=== PATIENT | male | born 1960 | race African-American/Black ===

== ENCOUNTER 2021-04-16 16:45 | Inpatient (IN) | payer OTHER ==
[2021-04-16] MEDS ORDERED: MAGNESIUM CITRATE 300 ML BOTTLE PO PRN (18:58)
[2021-04-16] MEDS ORDERED: ACETAMINOPHEN 325 MG TABLET (FP) PO PRN ×2 (18:58)
[2021-04-16] MEDS ORDERED: MAG HYDROX/AL HYDROX/SIMETH 30 ML UNIT-DOSE CUP PO PRN (18:58)
[2021-04-16] MEDS ORDERED: BISMUTH SUBSALICYLATE 524 MG/30 ML PO PRN (18:58)
[2021-04-16] MEDS ORDERED: IBUPROFEN 400 MG TABLET (FP) PO PRN (18:58)
[2021-04-16] MEDS ORDERED: MAGNESIUM HYDROX 2400MG/30ML ORAL SUSPENSION 30 ML CUP PO PRN (18:58)
[2021-04-16 19:43] VITALS: BMI 19.6
[2021-04-16] MEDS: hydrOXYzine PAMOATE 25 MG CAPSULE (FP) PO SCH (22:36)
[2021-04-16] MEDS: MELATONIN 5 MG TABLETS PO SCH (22:36)
[2021-04-16] MEDS: PRENATAL VITAMINS W/ FOLIC ACID TABLET (FP) PO SCH (22:36)
[2021-04-16] MEDS: THIAMINE HCL 100 MG TABLET (FP) PO SCH (22:36)
[2021-04-17] MEDS: NICOTINE 7 MG/24 HOURS TOPICAL PATCH TD SCH ×2 (01:16→11:26)
[2021-04-17] MEDS: hydrOXYzine PAMOATE 25 MG CAPSULE (FP) PO SCH ×5 (07:07→22:33)
[2021-04-17] MEDS ORDERED: methaDONE HCL 10 MG TABLET (FOR DETOX USE ONLY) PO ONE (10:15)
[2021-04-17] MEDS ORDERED: cloNIDine HCL 0.1 MG TABLET PO PRN (10:15)
[2021-04-17] MEDS ORDERED: diazePAM 5 MG TABLET PO PRN (10:15)
[2021-04-17 10:37] LABS: CALCIUM 8.9 mg/dL (8.5-10.1)
[2021-04-17 10:38] LABS: ALBUMIN 3.1 g/dl (3.4-5.0)
[2021-04-17 10:40] LABS: HEMATOCRIT 35.5 % (35.4-49); HEMOGLOBIN 12.1 GM/dL (11.7-16.9); MCH 30.4 pg (25.7-33.7); MEAN CELL VOLUME 89.6 fl (80-96); MEAN PLT VOLUME 7.6 fl (7.5-11.1); PLATELET COUNT 151 10^3/uL (134-434); RBC 3.96 M/mm3 (4.00-5.60); RDW 14.7 % (11.9-15.9)
[2021-04-17 10:41] LABS: CREATININE 2.3 mg/dL (0.55-1.3)
[2021-04-17 10:43] LABS: TOT PROT 7.6 g/dl (6.4-8.2)
[2021-04-17 10:47] LABS: BILIRUBIN,TOTAL 0.3 mg/dL (0.2-1)
[2021-04-17 10:55] LABS: WHITE BLOOD COUNT 1.6 K/mm3 (4.0-10.0)
[2021-04-17] MEDS: PRENATAL VITAMINS W/ FOLIC ACID TABLET (FP) PO SCH (11:28)
[2021-04-17] MEDS: diazePAM 5 MG TABLET PO SCH ×3 (11:29→22:33)
[2021-04-17] MEDS: METHOCARBAMOL 500 MG TABLET PO PRN ×2 (11:30→18:09)
[2021-04-17] MEDS: MELATONIN 5 MG TABLETS PO SCH (22:32)
[2021-04-17] MEDS: THIAMINE HCL 100 MG TABLET (FP) PO SCH (22:33)
[2021-04-17] MEDS: BICTEGRAV/EMTRICIT/TENOFOV (BIKTARVY) 50-200-25 MG TABLET PO SCH (22:35)
[2021-04-18] MEDS: hydrOXYzine PAMOATE 25 MG CAPSULE (FP) PO SCH ×5 (05:56→22:43)
[2021-04-18] MEDS: diazePAM 5 MG TABLET PO SCH ×2 (05:56→10:32)
[2021-04-18] MEDS: BICTEGRAV/EMTRICIT/TENOFOV (BIKTARVY) 50-200-25 MG TABLET PO SCH (07:07)
[2021-04-18] MEDS: NICOTINE 10 MG CARTRIDGE (INHALER) IH PRN (09:11)
[2021-04-18] MEDS ORDERED: methaDONE HCL 10 MG TABLET (FOR DETOX USE ONLY) ONE (09:36)
[2021-04-18] MEDS: amLODIPine BESYLATE 10 MG TABLET (FP) PO SCH (10:30)
[2021-04-18] MEDS: METHOCARBAMOL 500 MG TABLET PO PRN (10:30)
[2021-04-18] MEDS: PRENATAL VITAMINS W/ FOLIC ACID TABLET (FP) PO SCH (10:30)
[2021-04-18] MEDS: NICOTINE 7 MG/24 HOURS TOPICAL PATCH TD SCH (10:30)
[2021-04-18] MEDS: ONDANSETRON *ODT* 4 MG TABLET SL PRN (10:31)
[2021-04-18 18:23] LABS: BLOOD UREA NITROGEN 32.8 mg/dL (7-18)
[2021-04-18 18:26] LABS: CREATININE 2.5 mg/dL (0.55-1.3)
[2021-04-18] MEDS: THIAMINE HCL 100 MG TABLET (FP) PO SCH (22:43)
[2021-04-18] MEDS: MELATONIN 5 MG TABLETS PO SCH (22:47)
[2021-04-18] MEDS: AMMONIUM LACTATE 12% LOTION 225 GM BOTTLE TP SCH (22:48)
[2021-04-19] MEDS ORDERED: LACTULOSE 20 GM/30 ML UDC (FOR ORAL USE ONLY) PO PRN ×2 (00:28→06:00)
[2021-04-19] MEDS ORDERED: diazePAM 5 MG TABLET PO SCH (06:00)
[2021-04-19] MEDS: hydrOXYzine PAMOATE 25 MG CAPSULE (FP) PO SCH ×2 (06:09→10:44)
[2021-04-19] MEDS: METHOCARBAMOL 500 MG TABLET PO PRN (10:40)
[2021-04-19] MEDS: amLODIPine BESYLATE 10 MG TABLET (FP) PO SCH (10:40)
[2021-04-19] MEDS: PRENATAL VITAMINS W/ FOLIC ACID TABLET (FP) PO SCH (10:40)
[2021-04-19] MEDS: methaDONE HCL 10 MG TABLET (FOR DETOX USE ONLY) PO ONE ×2 (10:40→10:54)
[2021-04-19] MEDS: NICOTINE 7 MG/24 HOURS TOPICAL PATCH TD SCH (10:44)
[2021-04-19] MEDS: BICTEGRAV/EMTRICIT/TENOFOV (BIKTARVY) 50-200-25 MG TABLET PO SCH (10:46)
[2021-04-19] MEDS: AMMONIUM LACTATE 12% LOTION 225 GM BOTTLE TP SCH ×2 (11:24→22:23)
[2021-04-19] MEDS: LORazepam 0.5 MG TABLET PO SCH ×3 (11:28→23:48)
[2021-04-19] MEDS: LACTULOSE 20 GM/30 ML UDC (FOR ORAL USE ONLY) PO SCH ×2 (14:28→22:20)
[2021-04-19] MEDS: THIAMINE HCL 100 MG TABLET (FP) PO SCH (22:19)
[2021-04-19] MEDS: MELATONIN 5 MG TABLETS PO SCH (22:24)
[2021-04-20] MEDS: LORazepam 0.5 MG TABLET PO SCH ×2 (05:35→12:38)
[2021-04-20] MEDS: LACTULOSE 20 GM/30 ML UDC (FOR ORAL USE ONLY) PO SCH (05:35)
[2021-04-20] MEDS: MENTHOL/PHENOL 1 EACH UD MM PRN (05:38)
[2021-04-20] MEDS ORDERED: diazePAM 5 MG TABLET PO SCH (06:00)
[2021-04-20] MEDS: PRENATAL VITAMINS W/ FOLIC ACID TABLET (FP) PO SCH (10:16)
[2021-04-20] MEDS: NICOTINE 7 MG/24 HOURS TOPICAL PATCH TD SCH (10:16)
[2021-04-20] MEDS: amLODIPine BESYLATE 10 MG TABLET (FP) PO SCH (10:16)
[2021-04-20] MEDS: AMMONIUM LACTATE 12% LOTION 225 GM BOTTLE TP SCH (10:16)
[2021-04-20] MEDS: NICOTINE 10 MG CARTRIDGE (INHALER) IH PRN (10:17)
[2021-04-20] MEDS: ONDANSETRON *ODT* 4 MG TABLET SL PRN (13:45)
[2021-04-20 14:48] LABS: BASO % 0.4 % (0-2.0); EOS % 1.5 % (0-4.5); HEMATOCRIT 37.1 % (35.4-49); HEMOGLOBIN 12.4 GM/dL (11.7-16.9); MCH 30.9 pg (25.7-33.7); MCHC 33.4 g/dl (32.0-35.9); MEAN CELL VOLUME 92.5 fl (80-96); MEAN PLT VOLUME 7.4 fl (7.5-11.1); NEUT % 78.1 % (42.8-82.8); PLATELET COUNT 156 10^3/uL (134-434); RBC 4.01 M/mm3 (4.00-5.60); WHITE BLOOD COUNT 2.8 K/mm3 (4.0-10.0)
[2021-04-20 14:57] LABS: CALCIUM 9.6 mg/dL (8.5-10.1)
[2021-04-20 14:58] LABS: ALBUMIN 3.5 g/dl (3.4-5.0); BLOOD UREA NITROGEN 35.4 mg/dL (7-18)
[2021-04-20 15:01] LABS: CREATININE 2.4 mg/dL (0.55-1.3)
[2021-04-20 15:02] LABS: BILIRUBIN,TOTAL 0.3 mg/dL (0.2-1); TOT PROT 8.3 g/dl (6.4-8.2)
[2021-04-21] MEDS: MELATONIN 5 MG TABLETS PO SCH (00:37)
[2021-04-21] MEDS: AMMONIUM LACTATE 12% LOTION 225 GM BOTTLE TP SCH ×2 (00:37→10:34)
[2021-04-21] MEDS: THIAMINE HCL 100 MG TABLET (FP) PO SCH (00:38)
[2021-04-21] MEDS: LORazepam 0.5 MG TABLET PO SCH ×3 (00:43→17:47)
[2021-04-21] MEDS: MENTHOL/PHENOL 1 EACH UD MM PRN (03:06)
[2021-04-21] MEDS ORDERED: LORazepam 0.5 MG TABLET PO SCH (05:00)
[2021-04-21] MEDS ORDERED: diazePAM 5 MG TABLET PO ONE (06:00)
[2021-04-21] MEDS: NICOTINE 10 MG CARTRIDGE (INHALER) IH PRN ×2 (06:35→10:39)
[2021-04-21] MEDS ORDERED: methaDONE HCL 10 MG TABLET (FOR DETOX USE ONLY) PO ONE (10:00)
[2021-04-21] MEDS: PRENATAL VITAMINS W/ FOLIC ACID TABLET (FP) PO SCH (10:34)
[2021-04-21] MEDS: amLODIPine BESYLATE 10 MG TABLET (FP) PO SCH (10:34)
[2021-04-21] MEDS: METHOCARBAMOL 500 MG TABLET PO PRN (10:34)
[2021-04-21] MEDS: NICOTINE 7 MG/24 HOURS TOPICAL PATCH TD SCH (10:35)
[2021-04-22] MEDS: AMMONIUM LACTATE 12% LOTION 225 GM BOTTLE TP SCH ×2 (00:25→12:10)
[2021-04-22] MEDS: MELATONIN 5 MG TABLETS PO SCH (00:26)
[2021-04-22] MEDS: THIAMINE HCL 100 MG TABLET (FP) PO SCH (00:39)
[2021-04-22] MEDS ORDERED: guaiFENesin 200 MG/10 ML 10 ML UNIT-DOSE CUPS PO PRN (02:33)
[2021-04-22] MEDS: MENTHOL/PHENOL 1 EACH UD MM PRN (02:33)
[2021-04-22] MEDS ORDERED: LORazepam 0.5 MG TABLET PO ONE (05:00)
[2021-04-22 09:52] VITALS: BP 125/77; PULSE 90; TEMP 97.3
[2021-04-22 10:03] LABS: CALCIUM 8.6 mg/dL (8.5-10.1)
[2021-04-22 10:05] LABS: ALBUMIN 2.8 g/dl (3.4-5.0); BLOOD UREA NITROGEN 36.3 mg/dL (7-18)
[2021-04-22 10:08] LABS: CREATININE 2.1 mg/dL (0.55-1.3); TOT PROT 7.2 g/dl (6.4-8.2)
[2021-04-22 10:11] LABS: BILIRUBIN,TOTAL 0.4 mg/dL (0.2-1)
[2021-04-22] MEDS: PRENATAL VITAMINS W/ FOLIC ACID TABLET (FP) PO SCH (11:10)
[2021-04-22] MEDS: amLODIPine BESYLATE 10 MG TABLET (FP) PO SCH (11:10)
[2021-04-22] MEDS: NICOTINE 7 MG/24 HOURS TOPICAL PATCH TD SCH (12:11)
== END 2021-04-22 13:41 | disposition home or self-care (01) | DRG 897 ==
LOC: YASAS 16:45 → Y6N 19:59
PROVIDERS: ADMIT Allergy & Immunology; ATTEND Allergy & Immunology
PROC: HZ2ZZZZ Detoxification Services for Substance Abuse Treatment (ICD-10-PCS; principal; 2021-04-16)
DX: F11.23 Opioid dependence with withdrawal (principal); F14.20 Cocaine dependence, uncomplicated; E72.20 Disorder of urea cycle metabolism, unspecified; F10.230 Alcohol dependence with withdrawal, uncomplicated; F13.230 Sedative, hypnotic or anxiolytic dependence with withdrawal, uncomplicated; F17.210 Nicotine dependence, cigarettes, uncomplicated; Z21 Asymptomatic human immunodeficiency virus [HIV] infection status; D72.819 Decreased white blood cell count, unspecified; R03.0 Elevated blood-pressure reading, without diagnosis of hypertension; Z91.14 Patient's other noncompliance with medication regimen; Z56.0 Unemployment, unspecified
CPT/HCPCS: 36415; 80053; 82140; 82565; 84520; 85025; 85027; 86780; C9803; Q0162; U0003; U0005